=== PATIENT | female | born 1995 | race African-American/Black ===

== ENCOUNTER 2019-12-21 13:10 | Emergency (ER) | payer SELFPAY ==
[~2019-12-21] VITALS: Ht 152.4 cm; Wt 109.0 kg
[2019-12-21 13:48] VITALS: BP 142/75
--- NOTE | 2019-12-21 14:07 | PHYS DOC ---
Past Medical History Past Medical History: No Pertinent History (JASWANT PINEDA APRN) Past Surgical History: (JASWANT PINEDA APRN) Smoking Status: Never Smoker Alcohol Use: Occasionally (JASWANT PINEDA APRN) Adult General Chief Complaint Chief Complaint: ABDOMINAL PAIN IN HPI HPI Patient is a 24 year old female who presents with abdominal pain that is loc ated in the right lower pelvic area. The patient states that she thinks that she is around 6 weeks along, is unsure when her last menstrual period was. Denies any vomiting or diarrhea however she has been having some nausea. The patient is a [id number]. She has not received OB care so far during this . She reports has been using Tylenol and her pain is 5 out of 10 in severity. Denies fever. Complete ROS were reviewed and found to be within normal limits, except as documented in the HPI (JASWANT PINEDA APRN) Current Medications Current Medications Current Medications Medications (Trade) Dose Ordered Sig/Valeri Start Time Stop Time Status Last Admin Dose Admin Ondansetron HCl (Zofran Odt) 4 mg 1X ONCE 12/21/19 14:15 12/21/19 14:16 DC 12/21/19 14:13 4 MG (GOLLAPALLI,VANE E DO) Allergies Allergies Allergies Coded Allergies Type Severity Reaction Last Updated Verified No Known Drug Allergies 12/21/19 No (GOLLAPALLI,VANE E DO) Physical Exam Physical Exam Constitutional: Well developed, well nourished, no acute distress, non-toxic appearance. [] HENT: Normocephalic, atraumatic, bilateral external ears normal Abdomen: R lower pelvic tenderness Neurologic: Alert and oriented X 3, normal motor function, normal sensory function, no focal deficits noted. [] Psychologic: Affect normal, judgement normal, mood normal. [] (JASWANT PINEDA APRN) Current Patient Data Vital Signs Vital Signs Date Time Temp Pulse Resp B/P (MAP) Pulse Ox O2 Delivery O2 Flow Rate FiO2 12/21/19 13:48 98.4 91 16 142/75 (97) 99 Room Air 98.4 (GOLLAPALLI,VANE E DO) Lab Values Laboratory Tests Test 12/21/19 13:31 12/21/19 14:10 Urine Collection Type Unknown Urine Color Yellow Urine Clarity Clear Urine pH 7.5 (<5.0-8.0) Urine Specific [place] 1.015 (1.000-1.030) Urine Protein Negative mg/dL (NEG-TRACE) Urine Glucose (UA) Negative mg/dL (NEG) Urine Ketones (Stick) Negative mg/dL (NEG) Urine Blood Negative (NEG) Urine Nitrite Positive (NEG) Urine Bilirubin Negative (NEG) Urine Urobilinogen Dipstick 0.2 mg/dL (0.2 mg/dL) Urine Leukocyte Esterase Negative (NEG) Urine RBC Rare /HPF (0-2) Urine WBC 1-4 /HPF (0-4) Urine Squamous Epithelial Cells Mod /LPF Urine Bacteria Many /HPF (0-FEW) White Blood Count 8.1 x10^3/uL (4.0-11.0) Red Blood Count 4.52 x10^6/uL (3.50-5.40) Hemoglobin 11.5 g/dL (12.0-15.5) L Hematocrit 34.0 % (36.0-47.0) L Mean Corpuscular Volume 75 fL (79-100) L Mean Corpuscular Hemoglobin 26 pg (25-35) Mean Corpuscular Hemoglobin Concent 34 g/dL (31-37) Red Cell Distribution Width 18.0 % (11.5-14.5) H Platelet Count 488 x10^3/uL (140-400) H Neutrophils (%) (Auto) 51 % (31-73) Lymphocytes (%) (Auto) 35 % (24-48) Monocytes (%) (Auto) 8 % (0-9) Eosinophils (%) (Auto) 5 % (0-3) H Basophils (%) (Auto) 1 % (0-3) Neutrophils # (Auto) 4.1 x10^3/uL (1.8-7.7) Lymphocytes # (Auto) 2.9 x10^3/uL (1.0-4.8) Monocytes # (Auto) 0.6 x10^3/uL (0.0-1.1) Eosinophils # (Auto) 0.4 x10^3/uL (0.0-0.7) Basophils # (Auto) 0.1 x10^3/uL (0.0-0.2) Maternal Serum HCG Beta Subunit 01485 mIU/mL (0-5) H Sodium Level 137 mmol/L (136-145) Potassium Level 4.2 mmol/L (3.5-5.1) Chloride Level 102 mmol/L (98-107) Carbon Dioxide Level 25 mmol/L (21-32) Anion Gap 10 (6-14) Blood Urea Nitrogen 11 mg/dL (7-20) Creatinine 0.8 mg/dL (0.6-1.0) Estimated GFR (Cockcroft-Gault) 104.9 BUN/Creatinine Ratio 14 (6-20) Glucose Level 86 mg/dL (70-99) Calcium Level 9.0 mg/dL (8.5-10.1) Total Bilirubin 0.3 mg/dL (0.2-1.0) Aspartate Amino Transferase (AST) 14 U/L (15-37) L Alanine Aminotransferase (ALT) 21 U/L (14-59) Alkaline Phosphatase 109 U/L (46-116) Total Protein 7.6 g/dL (6.4-8.2) Albumin 3.5 g/dL (3.4-5.0) Albumin/Globulin Ratio 0.9 (1.0-1.7) L Laboratory Tests 12/21/19 14:10 Laboratory Tests 12/21/19 14:10 ([facility]ANE E DO) Lab Values Laboratory Tests Test 12/21/19 13:31 12/21/19 14:10 Urine Collection Type Unknown Urine Color Yellow Urine Clarity Clear Urine pH 7.5 (<5.0-8.0) Urine Specific [place] 1.015 (1.000-1.030) Urine Protein Negative mg/dL (NEG-TRACE) Urine Glucose (UA) Negative mg/dL (NEG) Urine Ketones (Stick) Negative mg/dL (NEG) Urine Blood Negative (NEG) Urine Nitrite Positive (NEG) Urine Bilirubin Negative (NEG) Urine Urobilinogen Dipstick 0.2 mg/dL (0.2 mg/dL) Urine Leukocyte Esterase Negative (NEG) Urine RBC Rare /HPF (0-2) Urine WBC 1-4 /HPF (0-4) Urine Squamous Epithelial Cells Mod /LPF Urine Bacteria Many /HPF (0-FEW) White Blood Count 8.1 x10^3/uL (4.0-11.0) Red Blood Count 4.52 x10^6/uL (3.50-5.40) Hemoglobin 11.5 g/dL (12.0-15.5) L Hematocrit 34.0 % (36.0-47.0) L Mean Corpuscular Volume 75 fL (79-100) L Mean Corpuscular Hemoglobin 26 pg (25-35) Mean Corpuscular Hemoglobin Concent 34 g/dL (31-37) Red Cell Distribution Width 18.0 % (11.5-14.5) H Platelet Count 488 x10^3/uL (140-400) H Neutrophils (%) (Auto) 51 % (31-73) Lymphocytes (%) (Auto) 35 % (24-48) Monocytes (%) (Auto) 8 % (0-9) Eosinophils (%) (Auto) 5 % (0-3) H Basophils (%) (Auto) 1 % (0-3) Neutrophils # (Auto) 4.1 x10^3/uL (1.8-7.7) Lymphocytes # (Auto) 2.9 x10^3/uL (1.0-4.8) Monocytes # (Auto) 0.6 x10^3/uL (0.0-1.1) Eosinophils # (Auto) 0.4 x10^3/uL (0.0-0.7) Basophils # (Auto) 0.1 x10^3/uL (0.0-0.2) Maternal Serum HCG Beta Subunit 03254 mIU/mL (0-5) H Sodium Level 137 mmol/L (136-145) Potassium Level 4.2 mmol/L (3.5-5.1) Chloride Level 102 mmol/L (98-107) Carbon Dioxide Level 25 mmol/L (21-32) Anion Gap 10 (6-14) Blood Urea Nitrogen 11 mg/dL (7-20) Creatinine 0.8 mg/dL (0.6-1.0) Estimated GFR (Cockcroft-Gault) 104.9 BUN/Creatinine Ratio 14 (6-20) Glucose Level 86 mg/dL (70-99) Calcium Level 9.0 mg/dL (8.5-10.1) Total Bilirubin 0.3 mg/dL (0.2-1.0) Aspartate Amino Transferase (AST) 14 U/L (15-37) L Alanine Aminotransferase (ALT) 21 U/L (14-59) Alkaline Phosphatase 109 U/L (46-116) Total Protein 7.6 g/dL (6.4-8.2) Albumin 3.5 g/dL (3.4-5.0) Albumin/Globulin Ratio 0.9 (1.0-1.7) L Laboratory Tests 12/21/19 14:10 Laboratory Tests 12/21/19 14:10 (JASWANT PINEDA APRN) EKG EKG [] (JASWANT PINEDA APRN) Radiology/Procedures Radiology/Procedures [] (JASWANT PINEDA APRN) Course & Med Decision Making Course & Med Decision Making Pertinent Labs and Imaging studies reviewed. (See chart for details) We will get ultrasound, labs, urine. We will also give ODT Zofran. Ultrasound shows intrauterine 5 weeks 6 days, with heart rate of 113. We will have the patient follow-up with [facility]. Beta hCG was 27,900. Patient is not had OB care so far during this . We will place the patient on vitamins, and also give Zofran for nausea at home. Patient's urine shows a UTI and so also put on Keflex. Labs are otherwise unremarkable. (JASWANT PINEDA APRN) Dragon Disclaimer Dragon Disclaimer This electronic medical record was generated, in whole or in part, using a voice recognition dictation system. (JASWANT PINEDA APRN) Attending Signature I have participated in the care of this patient and I have reviewed and agree with all pertinent clinical information above including history, exam, and recommendations. (VANE RODRIGUEZ DO) Departure Departure Impression: Primary Impression: Abdominal pain affecting Additional Impression: Urinary tract infection affecting Disposition: 01 HOME, SELF-CARE Condition: STABLE Referrals: NO PCP (PCP) PATO SHOEMAKER MD Patient Instructions: - Urinary Tract Infection Additional Instructions: Thank you for visiting [facility]. We appreciate you trusting us with your care. If any additional problems come up don't hesitate to return to visit us. Please follow up with your primary care provider so they can plan additional care if needed and know about the problem that you had. If symptoms worsen come back to the Emergency Department. Any concerning symptoms that start such as chest pain, shortness of air, weakness or numbness on one side of the body, running high fevers or any other concerning symptoms return to the ER. You have been prescribed an antibiotic today to help fight your infection. Please take all of the antibiotic as directed. If after 48 hours the infection is not improving, please return for more care. If the infection worsens, return to ER for additional care. Please follow-up with OB for additional OB care. Scripts Pnv No.115/Iron Fumarate/Fa ( 19 CHEWABLE TABLET) 1 Each Tab.chew 1 TAB PO DAILY for 30 Days, #30 TAB 0 Refills Prov: JASWANT PINEDA APRN 12/21/19 Ondansetron (ONDANSETRON ODT) 4 Mg Tab.rapdis 1 TAB PO PRN Q6-8HRS PRN for NAUSEA, #20 TAB Prov: JASWANT PINEDA APRN 12/21/19 Cephalexin (KEFLEX) 500 Mg Capsule 1 CAP PO BID for 7 Days, #14 CAP 0 Refills Prov: JASWANT PINEDA APRN 12/21/19 Problem Qualifiers JASWANT PINEDA APRN Dec 21, 2019 14:07 VANE RODRIGUEZ DO Dec 21, 2019 18:00
[2019-12-21 14:08] LABS: BILIRUBIN,URINE NEGATIVE (NEG); CLARITY,URINE CLEAR; COLOR,URINE YELLOW; NITRITE,URINE POSITIVE (NEG); PH,URINE 7.5 (<5.0-8.0); PROTEIN,URINE NEGATIVE (NEG-TRACE); UROBILINOGEN,URINE 0.2 mg/dL (0.2 mg/dL)
[2019-12-21] MEDS: ONDANSETRON ODT 4 MG TAB.RAPDIS. PO ONE (14:13)
[2019-12-21 14:15] LABS: BACTERIA,URINE MANY /HPF (0-FEW); RBC,URINE RARE /HPF (0-2); SQUAMOUS EPITHELIAL CELL,UR MOD /LPF
[2019-12-21 14:22] LABS: BASO # 0.1 x10^3/uL (0.0-0.2); BASO % 1 % (0-3); EOS # 0.4 x10^3/uL (0.0-0.7); EOS % 5 % (0-3); HEMOGLOBIN 11.5 g/dL (12.0-15.5); LYMPH # 2.9 x10^3/uL (1.0-4.8); LYMPH % 35 % (24-48); MEAN CORPUSCULAR HEMOGLOBIN 26 pg (25-35); MEAN CORPUSCULAR HGB CONC 34 g/dL (31-37); MEAN CORPUSCULAR VOLUME 75 fL (79-100); MONO # 0.6 x10^3/uL (0.0-1.1); MONO % 8 % (0-9); NEUT # 4.1 x10^3/uL (1.8-7.7); NEUT % 51 % (31-73); PLATELET COUNT 488 x10^3/uL (140-400); RED BLOOD COUNT 4.52 x10^6/uL (3.50-5.40); WHITE BLOOD COUNT 8.1 x10^3/uL (4.0-11.0)
[2019-12-21 14:31] LABS: CREATININE 0.8 mg/dL (0.6-1.0); GFR 104.9; POTASSIUM 4.2 mmol/L (3.5-5.1)
[2019-12-21 14:36] LABS: ALBUMIN 3.5 g/dL (3.4-5.0); ALBUMIN/GLOBULIN RATIO 0.9 (1.0-1.7); TOTAL BILIRUBIN 0.3 mg/dL (0.2-1.0); TOTAL PROTEIN 7.6 g/dL (6.4-8.2)
[2019-12-21] MEDS ORDERED: CEPH-264 PO (15:05)
[2019-12-21] MEDS ORDERED: PNV1TAB.3 PO (15:05)
[2019-12-21] MEDS ORDERED: ONDA4TAB12 PO (15:05)
--- NOTE | 2019-12-21 15:30 | RAD ---
Examination: OB <14 WKS W/TV History: Right lower pelvic pain Comparison/Correlation: None Findings: Transabdominal and transvaginal pelvic ultrasound exam was performed. Transvaginal technique was utilized to better assess endometrial contents and adnexal structures. Uterus measures 10 cm x 6 06). Atrium is normal. Intrauterine gestational sac is present. Yolk sac is evident. pole is present with heart rate of 113 bpm. [place]-rump length of 0.29 cm corresponding to 5 week 6 day gestation. Ultrasound EDC is 08/16/2020. Right ovary is 3.3 cm x 1.3 cm x 2.2 cm the left ovary measures 5.5 cm x 4.5 cm 4.6. Left ovarian cyst measuring 4.5 cm diameter is present. Small amount of pelvic free fluid is present. Impression: Physiologic left ovarian cyst. Pelvic free fluid is visible with physiologic. Single living intrauterine gestation with crown-rump length corresponding to 5 weeks 6 days. No subchorionic hemorrhage. Electronically signed by: Trenton Amor MD (12/21/2019 3:27 PM) [id number]
== END 2019-12-21 15:24 | disposition home or self-care (01) ==
LOC: ER 13:10
DX: O23.41 Unspecified infection of urinary tract in pregnancy, first trimester (principal); Z3A.01 Less than 8 weeks gestation of pregnancy
CPT/HCPCS: 36415; 76801; 76817; 80053; 81001; 84702; 85025; 86900; 86901; 87086; 99285; Q0162